=== PATIENT | female | born 1975 | race Caucasian/White ===

== ENCOUNTER 2016-07-11 08:24 | Emergency (ER) | payer OTHER ==
--- NOTE | 2016-07-11 08:58 | UC ---
Complaint Female HPI - HPI Summary HPI Summary: cough for two weeks, productive of yellow sputum. She has had dysuria, malodorous urine, dark urine for 4 days. no vaginal complaints. she has had right flank pain as well. no vomiting or chills. subjective fever for the past two days or so. prior hx of bronchitis and uti and pyelonephritis. - History Of Current Complaint Stated Complaint: URINARY,RESPIRATORY COMPLAINT Time Seen by Provider: 07/11/16 08:31 Hx Obtained From: Patient ?: No Onset/Duration: Gradual Onset Timing: Constant, Lasting Days Severity Initially: Moderate Severity Currently: Moderate Character: Dull Alleviating Factor(s): Position Associated Signs And Symptoms: Positive: Fever. Negative: Vaginal Bleeding/ Discharge, Vaginal Discharge, Nausea, Vomiting(# Of Episodes =), Genital Swelling, Genital Blisters - Risk Factors Ovarian Torsion Risk Factor: Negative PMH/Surg Hx/FS Hx/Imm Hx Endocrine History Of: Denies: Diabetes - Surgical History Surgical History: Yes - prior hx of bypass. - Family History Known Family History: Positive: Other - no hx of gu related disease. - Social History Substance Use Type: None Smoking Status (MU): Current Every Day Smoker Have You Smoked in the Last Year: Yes Review of Systems All Other Systems Reviewed And Are Negative: Yes Physical Exam Triage Information Reviewed: Yes Appearance: Well-Appearing, No Pain Distress, Obese Vital Signs Reviewed: Yes Eyes: Positive: Conjunctiva Clear ENT Exam: Normal ENT: Positive: Normal ENT inspection, Hearing grossly normal, Pharynx normal. Negative: Nasal drainage, TMs normal, TM bulging, TM dull, TM red, Tonsillar swelling, Tonsillar exudate, Trismus, Muffled/hoarse voice Dental: Negative: Cervical Lymphadenopathy Neck exam: Normal Neck: Positive: Supple, Nontender, No Lymphadenopathy. Negative: Nuchal Rigidity, Tenderness @, Enlarged Nodes @ Respiratory Exam: Normal Respiratory: Positive: Chest non-tender, Lungs clear, Normal breath sounds, No respiratory distress, No accessory muscle use. Negative: Respiratory distress, Decreased breath sounds, Accessory muscle use, Crackles, Rhonchi, Stridor, Wheezing Cardiovascular Exam: Normal Cardiovascular: Positive: RRR, Pulses Normal - HR 80 Abdomen Description: Positive: No Organomegaly, Soft, CVA Tenderness (R) Musculoskeletal: Positive: Strength Intact, ROM Intact Neurological Exam: Normal Neurological: Positive: Alert, Muscle Tone Normal. Negative: Fatigued Psychological Exam: Normal Psychological: Positive: Normal Response To Family, Age Appropriate Behavior Skin Exam: Normal Skin: Negative: rashes Complaint Female Dx - Course Course Of Treatment: no indication that there is a stone. UTI symptoms began before flank pain. no sudden onset vomiting. She was told and she agreed to return to ED for any worsening of any kind. She was told that pyelonephritis may spread and worsen. her cough clinically benign with no indications of pneumonia. - Differential Dx/Diagnosis Differential Diagnosis/HQI/PQRI: Appendicitis, Bartholin Cyst, Cervicitis, Ectopic, Endometriosis, Ovarian Cyst, Ovarian Torsion, Pelvic Inflammatory Disease, , Renal Colic, Sexually Transmitted Disease, Ureteral Stone Provider Diagnoses: uti. pyelonephritis. acute bronchitis. Discharge - Discharge Plan Condition: Good Disposition: HOME Prescriptions: Sulfamethox/Trimethoprim DS* [Bactrim DS 800/160 TAB*] 1 tab PO BID #20 tab Patient Education Materials: Acute Pyelonephritis (ED)
[2016-07-11] MEDS ORDERED: cefTRIAXone VIAL(*) 1,000 MG VIAL IM ONE (09:06)
[2016-07-11 09:19] VITALS: BP 156/95
[2016-07-11] MEDS ORDERED: Lidocaine 1%* 5 ML VIAL ONE (09:23)
== END 2016-07-11 10:01 | disposition home or self-care (01) ==
LOC: UCCORT 08:24
DX: N39.0 Urinary tract infection, site not specified (principal); N12 Tubulo-interstitial nephritis, not specified as acute or chronic; J20.9 Acute bronchitis, unspecified; E66.9 Obesity, unspecified; Z87.440 Personal history of urinary (tract) infections; R03.0 Elevated blood-pressure reading, without diagnosis of hypertension; Z32.02 Encounter for pregnancy test, result negative; F17.210 Nicotine dependence, cigarettes, uncomplicated
CPT/HCPCS: 81003; 84702; 87077; 87086; 87186; 96372; 99212; G0463; J0696